=== PATIENT | female | born 1990 ===

== ENCOUNTER 2018-07-26 04:50 | Emergency (ER) | payer OTHER ==
[2018-07-26 05:11] VITALS: RESP 18; O2SAT 96
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
[2018-07-26 10:29] VITALS: BP 128/72; PULSE 92; TEMP 98.2
== END 2018-07-26 09:42 | disposition home or self-care (01) ==
LOC: H.ER 04:50
DX: T74.21XA Adult sexual abuse, confirmed, initial encounter (principal); F10.10 Alcohol abuse, uncomplicated